=== PATIENT | female | born 1940 | race Caucasian/White ===

== ENCOUNTER → 2022-01-26 | Outpatient (CLI) | payer MEDICARE ==
[2022-01-26 13:47] LABS: BASOPHILS ABSOLUTE AUTO 0.08 K/mm3 (0.00-0.23); BASOPHILS PERCENT AUTO 1 % (0-2); EOSINOPHILS ABSOLUTE AUTO 0.41 K/mm3 (0.00-0.68); EOSINOPHILS PERCENT AUTO 6 % (0-6); Hematocrit 37.6 % (33.0-51.0); Hemoglobin 12.3 g/dL (11.5-16.0); IMMATURE GRAN ABSOLUTE AUTO 0.01 K/mm3 (0.00-0.10); IMMATURE GRAN PERCENT AUTO 0 % (0-1); LYMPHOCYTES ABSOLUTE AUTO 1.38 K/mm3 (0.84-5.20); LYMPHOCYTES PERCENT AUTO 21 % (21-46); MONOCYTES ABSOLUTE AUTO 0.54 K/mm3 (0.16-1.47); MONOCYTES PERCENT AUTO 8 % (4-13); Mean Corpuscular HGB 31.7 pg (26.0-34.0); Mean Corpuscular HGB Conc 32.7 g/dL (31.5-36.5); Mean Corpuscular Volume 97 fL (80-100); Mean Platelet Volume 9.6 fL (9.1-12.4); NEUTROPHILS ABSOLUTE AUTO 4.29 K/mm3 (1.96-9.15); NEUTROPHILS PERCENT AUTO 64 % (41-73); Platelet Count 164 K/mm3 (150-400); RDW Coefficient Variation 12.5 % (11.7-14.2); RDW Standard Deviation 44.1 fL (35.1-46.3); Red Blood Cell Count 3.88 M/mm3 (3.80-5.20); White Blood Cell Count 6.71 K/mm3 (4.00-11.30)
== END ==
LOC: LAB SHORT 12:50 → LAB 12:50
PROVIDERS: Physician Assistant
DX: S91.002A Unspecified open wound, left ankle, initial encounter (principal); L03.116 Cellulitis of left lower limb
CPT/HCPCS: 85025; 85651; 86140

== ENCOUNTER 2022-03-17 11:36 | Emergency (ER) | payer MEDICARE ==
[~2022-03-17] VITALS: Ht 165.1 cm; Wt 61.2 kg
[2022-03-17 13:18] LABS: BASOPHILS ABSOLUTE AUTO 0.08 K/mm3 (0.00-0.23); BASOPHILS PERCENT AUTO 1 % (0-2); EOSINOPHILS ABSOLUTE AUTO 0.33 K/mm3 (0.00-0.68); EOSINOPHILS PERCENT AUTO 4 % (0-6); Hematocrit 34.1 % (33.0-51.0); Hemoglobin 11.2 g/dL (11.5-16.0); IMMATURE GRAN ABSOLUTE AUTO 0.02 K/mm3 (0.00-0.10); IMMATURE GRAN PERCENT AUTO 0 % (0-1); LYMPHOCYTES ABSOLUTE AUTO 1.78 K/mm3 (0.84-5.20); LYMPHOCYTES PERCENT AUTO 22 % (21-46); MONOCYTES ABSOLUTE AUTO 0.72 K/mm3 (0.16-1.47); MONOCYTES PERCENT AUTO 9 % (4-13); Mean Corpuscular HGB 31.7 pg (26.0-34.0); Mean Corpuscular HGB Conc 32.8 g/dL (31.5-36.5); Mean Corpuscular Volume 97 fL (80-100); Mean Platelet Volume 9.7 fL (9.1-12.4); NEUTROPHILS ABSOLUTE AUTO 5.25 K/mm3 (1.96-9.15); NEUTROPHILS PERCENT AUTO 64 % (41-73); Platelet Count 238 K/mm3 (150-400); RDW Coefficient Variation 13.1 % (11.7-14.2); RDW Standard Deviation 46.2 fL (35.1-46.3); Red Blood Cell Count 3.53 M/mm3 (3.80-5.20); White Blood Cell Count 8.18 K/mm3 (4.00-11.30)
[2022-03-17 13:32] LABS: Albumin, Blood 3.5 g/dL (3.4-5.0); Albumin/Globulin Ratio 1.2 (0.8-1.8); Bilirubin, Total 0.6 mg/dL (0.1-1.0); Bun/Creatinine Ratio 23.2 (12.0-20.0); Calcium, Blood 9.1 mg/dL (8.5-10.1); Creatinine, Blood 0.78 mg/dL (0.40-1.00); Globulin, Blood 2.8 g/dL (2.2-4.0); Potassium, Blood 3.9 mmol/L (3.5-5.5); Total Protein, Blood 6.3 g/dL (6.4-8.2)
[2022-03-17] MEDS ORDERED: Calan40 MG (13:54)
[2022-03-17] MEDS ORDERED: LOVASTATIN20 MG PO (13:54)
[2022-03-17] MEDS ORDERED: MERIBIN5 MG PO (13:55)
[2022-03-17] MEDS ORDERED: NAPPHEOPSO BOTHEYES (13:55)
[2022-03-17] MEDS ORDERED: ACETAMINOPHEN500 M2 PO (13:55)
[2022-03-17] MEDS ORDERED: LOW DOSE ASPIRI81 M1 PO (13:55)
[2022-03-17] MEDS ORDERED: Pepcid 20 mg Ta20 MG PO (13:56)
[2022-03-17] MEDS ORDERED: DECARA1250 MC1 PO (13:56)
[2022-03-17] MEDS ORDERED: HYDHCL25 PO (13:57)
[2022-03-17] MEDS ORDERED: Prinivil10 MG PO (13:57)
[2022-03-17] MEDS ORDERED: PARO20 PO (13:59)
[2022-03-17] MEDS ORDERED: METO50 PO (14:00)
[2022-03-17] MEDS ORDERED: CEPH500 PO (16:22)
[2022-03-17] MEDS ORDERED: CLIN150 PO (17:10)
== END 2022-03-17 16:57 | disposition home or self-care (01) ==
LOC: ER 11:36
PROVIDERS: Student in an Organized Health Care Education/Training Program
DX: I87.2 Venous insufficiency (chronic) (peripheral) (principal)
CPT/HCPCS: 36415; 73610; 80053; 85025; 93971; A9270

== ENCOUNTER 2022-03-28 13:48 | Inpatient (IN) | payer OTHER, MEDICARE ==
[~2022-03-28] VITALS: Ht 165.1 cm; Wt 60.8 kg
[~2022-03-28 13:48] MED LIST: ACETAMINOPHEN500 M2 PO; CEPH500 PO; CLIN150 PO; Calan40 MG; DECARA1250 MC1 PO; HYDHCL25 PO; LOVASTATIN20 MG PO; LOW DOSE ASPIRI81 M1 PO; MERIBIN5 MG PO; METO50 PO; NAPPHEOPSO BOTHEYES; PARO20 PO; Pepcid 20 mg Ta20 MG PO; Prinivil10 MG PO
[2022-03-28 14:42] LABS: BASOPHILS ABSOLUTE AUTO 0.05 K/mm3 (0.00-0.23); BASOPHILS PERCENT AUTO 1 % (0-2); EOSINOPHILS PERCENT AUTO 2 % (0-6); Hemoglobin 10.7 g/dL (11.5-16.0); IMMATURE GRAN ABSOLUTE AUTO 0.18 K/mm3 (0.00-0.10); IMMATURE GRAN PERCENT AUTO 2 % (0-1); LYMPHOCYTES ABSOLUTE AUTO 1.07 K/mm3 (0.84-5.20); LYMPHOCYTES PERCENT AUTO 10 % (21-46); MONOCYTES ABSOLUTE AUTO 0.77 K/mm3 (0.16-1.47); MONOCYTES PERCENT AUTO 7 % (4-13); Mean Corpuscular HGB 31.7 pg (26.0-34.0); Mean Corpuscular HGB Conc 32.4 g/dL (31.5-36.5); Mean Corpuscular Volume 98 fL (80-100); Mean Platelet Volume 8.8 fL (9.1-12.4); NEUTROPHILS ABSOLUTE AUTO 8.25 K/mm3 (1.96-9.15); NEUTROPHILS PERCENT AUTO 78 % (41-73); Platelet Count 223 K/mm3 (150-400); RDW Coefficient Variation 13.1 % (11.7-14.2); RDW Standard Deviation 46.3 fL (35.1-46.3); Red Blood Cell Count 3.38 M/mm3 (3.80-5.20); White Blood Cell Count 10.52 K/mm3 (4.00-11.30)
[2022-03-28 15:00] LABS: Albumin, Blood 3.1 g/dL (3.4-5.0); Bilirubin, Total 0.6 mg/dL (0.1-1.0); Bun/Creatinine Ratio 29.2 (12.0-20.0); Calcium, Blood 8.7 mg/dL (8.5-10.1); Creatinine, Blood 0.75 mg/dL (0.40-1.00); Globulin, Blood 3.2 g/dL (2.2-4.0); Potassium, Blood 4.2 mmol/L (3.5-5.5); Total Protein, Blood 6.3 g/dL (6.4-8.2)
[2022-03-28] MEDS ORDERED: Avidoxy100 MG PO (18:01)
[2022-03-28] MEDS ORDERED: CEPH500 PO (18:03)
[2022-03-28] MEDS ORDERED: NAPR220 PO (18:41)
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
[2022-03-28 20:01] LABS: BASOPHILS ABSOLUTE AUTO 0.04 K/mm3 (0.00-0.23); BASOPHILS PERCENT AUTO 0 % (0-2); EOSINOPHILS ABSOLUTE AUTO 0.02 K/mm3 (0.00-0.68); EOSINOPHILS PERCENT AUTO 0 % (0-6); Hematocrit 28.4 % (33.0-51.0); Hemoglobin 9.4 g/dL (11.5-16.0); IMMATURE GRAN ABSOLUTE AUTO 0.08 K/mm3 (0.00-0.10); IMMATURE GRAN PERCENT AUTO 1 % (0-1); LYMPHOCYTES ABSOLUTE AUTO 1.03 K/mm3 (0.84-5.20); LYMPHOCYTES PERCENT AUTO 9 % (21-46); MONOCYTES ABSOLUTE AUTO 0.65 K/mm3 (0.16-1.47); MONOCYTES PERCENT AUTO 5 % (4-13); Mean Corpuscular HGB 31.5 pg (26.0-34.0); Mean Corpuscular HGB Conc 33.1 g/dL (31.5-36.5); Mean Corpuscular Volume 95 fL (80-100); Mean Platelet Volume 8.8 fL (9.1-12.4); NEUTROPHILS ABSOLUTE AUTO 10.23 K/mm3 (1.96-9.15); NEUTROPHILS PERCENT AUTO 85 % (41-73); Platelet Count 176 K/mm3 (150-400); RDW Coefficient Variation 13.3 % (11.7-14.2); RDW Standard Deviation 46.5 fL (35.1-46.3); Red Blood Cell Count 2.98 M/mm3 (3.80-5.20); White Blood Cell Count 12.05 K/mm3 (4.00-11.30)
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
[2022-03-29 04:45] LABS: BASOPHILS ABSOLUTE AUTO 0.03 K/mm3 (0.00-0.23); BASOPHILS PERCENT AUTO 0 % (0-2); EOSINOPHILS ABSOLUTE AUTO 0.02 K/mm3 (0.00-0.68); EOSINOPHILS PERCENT AUTO 0 % (0-6); Hematocrit 26.3 % (33.0-51.0); Hemoglobin 8.8 g/dL (11.5-16.0); IMMATURE GRAN ABSOLUTE AUTO 0.04 K/mm3 (0.00-0.10); IMMATURE GRAN PERCENT AUTO 0 % (0-1); LYMPHOCYTES ABSOLUTE AUTO 1.04 K/mm3 (0.84-5.20); LYMPHOCYTES PERCENT AUTO 12 % (21-46); MONOCYTES ABSOLUTE AUTO 0.65 K/mm3 (0.16-1.47); MONOCYTES PERCENT AUTO 7 % (4-13); Mean Corpuscular HGB 31.8 pg (26.0-34.0); Mean Corpuscular HGB Conc 33.5 g/dL (31.5-36.5); Mean Corpuscular Volume 95 fL (80-100); NEUTROPHILS ABSOLUTE AUTO 7.26 K/mm3 (1.96-9.15); NEUTROPHILS PERCENT AUTO 80 % (41-73); Platelet Count 167 K/mm3 (150-400); RDW Coefficient Variation 13.2 % (11.7-14.2); RDW Standard Deviation 45.9 fL (35.1-46.3); Red Blood Cell Count 2.77 M/mm3 (3.80-5.20); White Blood Cell Count 9.04 K/mm3 (4.00-11.30)
[2022-03-29 05:22] LABS: Albumin, Blood 2.7 g/dL (3.4-5.0); Anion Gap 6 mmol/L (6-16); Blood Urea Nitrogen 15 mg/dL (8-24); Bun/Creatinine Ratio 23.7 (12.0-20.0); CO2, Blood 26 mmol/L (21-32); Calcium, Blood 8.1 mg/dL (8.5-10.1); Chloride, Blood 107 mmol/L (98-108); Creatinine, Blood 0.63 mg/dL (0.40-1.00); Glomerular Filtration Rate 90 (60-); Glucose, Blood 121 mg/dL (70-99); Phosphorus, Blood 2.8 mg/dL (2.5-4.9); Potassium, Blood 4.2 mmol/L (3.5-5.5); Sodium, Blood 139 mmol/L (136-145)
[2022-03-29] MEDS ORDERED: CLIN150 PO (10:07)
[2022-03-29] MEDS ORDERED: HYDCHL25 PO (10:09)
[2022-03-29 13:49] LABS: Hematocrit 24.6 % (33.0-51.0)
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
--- NOTE | 2022-03-29 16:40 | NUR ---
ASSUMED CARE RECEIVED REPORT ON THE PT FROM PREVIOUS RN. LAID EYES ON THE PT WHO IS RESTING COMFORTABLY IN BED AT TIME OF CHANGE OF CARE. NO NEEDS AT THIS TIME. WILL CTM
[2022-03-30 04:39] LABS: Hematocrit 20.7 % (33.0-51.0); Hemoglobin 6.8 g/dL (11.5-16.0); Mean Corpuscular HGB 31.8 pg (26.0-34.0); Mean Corpuscular HGB Conc 32.9 g/dL (31.5-36.5); Mean Corpuscular Volume 97 fL (80-100); Platelet Count 173 K/mm3 (150-400); RDW Coefficient Variation 13.6 % (11.7-14.2); RDW Standard Deviation 47.8 fL (35.1-46.3); Red Blood Cell Count 2.14 M/mm3 (3.80-5.20); White Blood Cell Count 13.53 K/mm3 (4.00-11.30)
[2022-03-30 04:55] LABS: Albumin, Blood 2.6 g/dL (3.4-5.0); Anion Gap 5 mmol/L (6-16); Blood Urea Nitrogen 24 mg/dL (8-24); Bun/Creatinine Ratio 30.1 (12.0-20.0); CO2, Blood 29 mmol/L (21-32); Calcium, Blood 7.9 mg/dL (8.5-10.1); Chloride, Blood 102 mmol/L (98-108); Glomerular Filtration Rate 75 (60-); Glucose, Blood 141 mg/dL (70-99); Phosphorus, Blood 2.7 mg/dL (2.5-4.9); Potassium, Blood 4.5 mmol/L (3.5-5.5); Sodium, Blood 136 mmol/L (136-145)
--- NOTE | 2022-03-30 05:26 | NUR ---
SHIFT SUMMARY NO ACUTE EVENTS THIS SHIFT, PATIENT VOIDING USING BEDPAN, TAKING IN CLEAR LIQUIDS EASILY. DENIES N/V. REPOSITIONS T/O SHIFT. DRESSING ON LLE CHANGED BY THIS RN. MEDICATED FOR PAIN WITH GOOD RESULTS. RESTS COMFORTABLY T/O SHIFT. PLAN FOR DISCHARGE HOME WHEN MEDICALLY STABLE. VSS, CALL LIGHT IN REACH.
--- NOTE | 2022-03-30 15:13 | NUR ---
tele SINUS TACH @ 108 PER DENISE.
--- NOTE | 2022-03-30 15:22 | NUR ---
RYLEY Gay RN IN TO PLACE POWERGLIDE.
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
[2022-03-30 21:24] LABS: Hematocrit 25.2 % (33.0-51.0); Hemoglobin 8.7 g/dL (11.5-16.0)
--- NOTE | 2022-03-31 04:14 | NUR ---
SHIFT SUMMARY NO ACUTE CHANGES THIS SHIFT. ULTRAM PRN FOR PAIN MANAGEMENT. ORAL ABX PER ORDERS. REMAINS ON 3L O2 VIA NC. GETS SHORT OF BREATH WITH EXERTION + WITH PAIN. CHANGING ATTENDS PRN. DRESSING CHANGED TO LEFT ANKLE WOUND. NPO SINCE MIDNIGHT FOR CHEST TUBE PLACEMENT TODAY. USES CALL LIGHT APPROPRIATELY.
[2022-03-31 06:11] LABS: Hematocrit 26.4 % (33.0-51.0); Hemoglobin 8.9 g/dL (11.5-16.0); Mean Corpuscular HGB 30.9 pg (26.0-34.0); Mean Corpuscular HGB Conc 33.7 g/dL (31.5-36.5); Mean Platelet Volume 9.1 fL (9.1-12.4); NRBC ABSOLUTE 0.06 K/mm3 (0.00-0.02); NRBC Auto 0.4 /100 WBC (0.0-0.2); Platelet Count 149 K/mm3 (150-400); RDW Coefficient Variation 15.2 % (11.7-14.2); RDW Standard Deviation 49.9 fL (35.1-46.3); Red Blood Cell Count 2.88 M/mm3 (3.80-5.20); White Blood Cell Count 14.33 K/mm3 (4.00-11.30)
[2022-03-31 06:14] LABS: Mean Corpuscular Volume 92 fL (80-100)
[2022-03-31 07:24] LABS: Albumin, Blood 2.8 g/dL (3.4-5.0); Anion Gap 4 mmol/L (6-16); Blood Urea Nitrogen 20 mg/dL (8-24); CO2, Blood 30 mmol/L (21-32); Calcium, Blood 8.5 mg/dL (8.5-10.1); Chloride, Blood 98 mmol/L (98-108); Creatinine, Blood 0.69 mg/dL (0.40-1.00); Glomerular Filtration Rate 88 (60-); Glucose, Blood 107 mg/dL (70-99); Phosphorus, Blood 2.7 mg/dL (2.5-4.9); Sodium, Blood 132 mmol/L (136-145)
--- NOTE | 2022-03-31 10:53 | NUR ---
PT TO PREOP AT 1015.
--- NOTE | 2022-03-31 11:06 | NUR ---
DISCUSSED TELE AND HR W/DR JULIEN NO NEW ORDERS AT THIS TIME.
--- NOTE | 2022-03-31 11:38 | NUR ---
03/31/22 1138 Britni Newby NO PREOP ANTIBIOTICS ORDERED PER PATIENT IS ON SCHEDULED ANTIBIOTICS.
--- NOTE | 2022-03-31 13:10 | NUR ---
PT BACK TO ROOM FROM PACU ALERT AND ORIENTED. FAMILY BEDSIDE. CHEST TUBE PLACED TO SUCTION PER ORDERS. DRAINING DARK RED FLUID. OUTPUT MARKED ON ARRIVAL TO MONITOR. PT REPORTS PAIN TOLERABLE. TELE REPORTED WAP @ 110 PER NATE. 02 SATS 92-94% ON 3L NC. WOUND CARE NURSE IN ROOM TO ASSESS AND TREAT LLE WOUND. CALL LIGHT IN REACH. ADMINISTERED SCHEDULED ABX PER ORDERS. PT SWALLOWED WITHOUT DIFFICULTY.
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
--- NOTE | 2022-03-31 17:38 | NUR ---
SUMMARY PT POD 0 FOR CHEST TUBE PLACED TO R LATERAL CHEST WALL. PLACED TO SUCTION PER ORDERS. DRAINING THIN RED FLUID. DRESSING INTACT. PT 02 SATS LOW 90S ON 3L 02. TELE SHOWING WAP IN 110S TO 120S, DR JULIEN NOTIFIED. MEDICATED PT PER ORDERS FOR PAIN. PT TOLERATING SMALL AMOUNTS OF PO. MANAGER CLINICAL INFORMATICS IN TO SEE PT AND CHANGED DRESSING THIS SHIFT. WOUND CARE ORDERS IN CHART. CALL LIGHT IN REACH.
--- NOTE | 2022-04-01 04:33 | NUR ---
SHIFT SUMMARY PT RESTED WELL THIS SHIFT. FORGETFUL AT TIMES, BUT REORIENTS EASILY. BED ALARM IN PLACE FOR SAFETY. CHEST TUBE REMAINS INTACT AND TO WALL SUCTION. SEROSANGUINOUS DRAINAGE NOTED IN CHEST TUBE. REMAINS ON 3L O2 VIA NC. SOB WITH EXERTION, ENCOURAGING DEEP BREATHING. CHANGING ATTENDS PRN. ULTRAM PRN FOR PAIN. CALL LIGHT WITHIN REACH.
[2022-04-01 06:21] LABS: Hematocrit 25.7 % (33.0-51.0); Hemoglobin 8.7 g/dL (11.5-16.0); Mean Corpuscular HGB 31.6 pg (26.0-34.0); Mean Corpuscular HGB Conc 33.9 g/dL (31.5-36.5); Mean Corpuscular Volume 94 fL (80-100); Mean Platelet Volume 9.2 fL (9.1-12.4); NRBC ABSOLUTE 0.05 K/mm3 (0.00-0.02); NRBC Auto 0.4 /100 WBC (0.0-0.2); Platelet Count 160 K/mm3 (150-400); RDW Coefficient Variation 14.9 % (11.7-14.2); RDW Standard Deviation 49.5 fL (35.1-46.3); Red Blood Cell Count 2.75 M/mm3 (3.80-5.20); White Blood Cell Count 13.43 K/mm3 (4.00-11.30)
[2022-04-01 06:23] LABS: Albumin, Blood 2.5 g/dL (3.4-5.0); Anion Gap 4 mmol/L (6-16); Blood Urea Nitrogen 16 mg/dL (8-24); Bun/Creatinine Ratio 28.1 (12.0-20.0); CO2, Blood 30 mmol/L (21-32); Calcium, Blood 8.3 mg/dL (8.5-10.1); Chloride, Blood 99 mmol/L (98-108); Creatinine, Blood 0.57 mg/dL (0.40-1.00); Glomerular Filtration Rate 92 (60-); Glucose, Blood 121 mg/dL (70-99); Phosphorus, Blood 2.7 mg/dL (2.5-4.9); Potassium, Blood 4.2 mmol/L (3.5-5.5); Sodium, Blood 133 mmol/L (136-145)
--- NOTE | 2022-04-01 17:36 | NUR ---
SUMMARY: NO ACUTE CHANGE TODAY. VSS, A/O-FORGETFUL AT TIMES. BED ALARM ON. CHEST TUBE TO SUCTION, 100 ML OF SS TOTAL DRAINAGE OUT OF CT TODAY. INSERTION SITE IS WNL WITH DRY SS DRAINAGE AT DRESSING. PT HAS NO COMPLAINT OF SOB, CHEST PAIN. PAIN APPEARS WELL MANAGED WITH PO TRAMADOL. PT ABLE TO AMBULATE IN ROOM WITH THERAPY, SBA, FWW. CHRONIC WOUND AT DRESSING CHANGED TODAY BY WOUND RN. TELE STABLE. NO ACUTE CONCERNS AT THIS TIME.
--- NOTE | 2022-04-02 04:51 | NUR ---
SUMMARY PT HAD INCREASED CONFUSION WITH HALLUCINATIONS THIS SHIFT. PT CX TUBE REMAINS PATENT AND TO WALL SUCTION. CX TUBE DRAINING SS FLUID. PT HAS DENIED SOB THIS SHIFT. PT HAS HAD SOME DISCOMFORT AND TX W/ TRAMADOL WITH RELIEF. PT CURRENTLY SLEEPING IN NO DISTRESS. BED ALARM ON.
[2022-04-02 04:53] LABS: Hematocrit 25.2 % (33.0-51.0); Hemoglobin 8.4 g/dL (11.5-16.0); Mean Corpuscular HGB Conc 33.3 g/dL (31.5-36.5); Mean Corpuscular Volume 93 fL (80-100); Mean Platelet Volume 9.1 fL (9.1-12.4); NRBC ABSOLUTE 0.03 K/mm3 (0.00-0.02); NRBC Auto 0.2 /100 WBC (0.0-0.2); Platelet Count 189 K/mm3 (150-400); RDW Coefficient Variation 14.9 % (11.7-14.2); RDW Standard Deviation 48.5 fL (35.1-46.3); Red Blood Cell Count 2.71 M/mm3 (3.80-5.20); White Blood Cell Count 13.12 K/mm3 (4.00-11.30)
[2022-04-02 05:05] LABS: Albumin, Blood 2.5 g/dL (3.4-5.0); Anion Gap 7 mmol/L (6-16); Blood Urea Nitrogen 19 mg/dL (8-24); CO2, Blood 28 mmol/L (21-32); Calcium, Blood 8.3 mg/dL (8.5-10.1); Chloride, Blood 98 mmol/L (98-108); Creatinine, Blood 0.66 mg/dL (0.40-1.00); Glomerular Filtration Rate 89 (60-); Glucose, Blood 114 mg/dL (70-99); Phosphorus, Blood 3.2 mg/dL (2.5-4.9); Potassium, Blood 3.8 mmol/L (3.5-5.5); Sodium, Blood 133 mmol/L (136-145)
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
--- NOTE | 2022-04-03 04:30 | NUR ---
SUMMARY PT CONFUSION AND HALLUCINATIONS INCREASED THROUGHOUT SHIFT. PT ATTEMPTED TO REMOVE CX TUBE DRESSING. A ABD BINDER WAS LOOSELY APPLIED TO COVER CX TUBE SITE. CX TUBE IS PATENT AND FUNCTIONING WELL. THIS AM PT BECAME MORE IMPULSIVE AND HAS BEEN TRING TO GET OUT OF BED NUMEROUS TIMES. DR LAINEZ WAS CALLED AND A RESTRAINT ORDER WAS OBTAINED. PT WAS PLACED IN A ASHLEY VEST FOR HER SAFETY. PT IS BREATHING EASY AND IN NO DISTRESS. CALL LIGHT IN REACH AND BED ALARM ON.
--- NOTE | 2022-04-03 12:23 | NUR ---
PATIENT VERY LETHARGIC TODAY. WILL WAKE UP APPROPRIATELY TO HER NAME AND VOICE, CANNOT HAVE CONVERSATION WITH HER THOUGH D/T RESPONSES MAKING NO SENSE. FAMILY FEELS THAT THIS CONFUSION OS D/T THE TRAMADOL. PATIENT UNABLE TO TAKE MEDICATIONS THIS MORNING D/T BEING "SO SLEEPY" AND NOT STAYING AWAKE/KEEPING EYES OPEN.
--- NOTE | 2022-04-03 17:35 | NUR ---
SHIFT SUMMARY DR AZMORANO REMOVED CHEST TUBE THIS SHIFT, PLAN FOR XRAY IN AM. PATIENT VERY SLEEPY/LETHARGIC T/O SHIFT. NOC RN FROM LAST NIGHT REPORTED PATIENT TO BE VERY RESTLESS AND DID NOT SLEEP MUCH, THIS RN SUSPECTS PATIENT IS "CATHCING UP" ON REST. TRMADOL DC'D D/T FAMILY FEELING THAT IT CAUSED THE "ACUTE CONFUSION & HALLUCINATIONS". PATIENT HAS NOT C/O PAIN. POOR PO INTAKE THIS SHIFT D/T PATIENT SLEEPING. CALL LIGHT IN REACH.
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
[2022-04-04] MEDS ORDERED: PROBIOTIC1 EA13 PO (13:21)
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
== END 2022-04-04 14:15 | disposition home or self-care (01) | DRG 199 ==
LOC: ER 13:48 → SURS 16:10
PROVIDERS: Family Medicine; Internal Medicine; Student in an Organized Health Care Education/Training Program; ADMIT Surgery
PROC: 30233N1 Transfusion of Nonautologous Red Blood Cells into Peripheral Vein, Percutaneous Approach (ICD-10-PCS; principal; 2022-03-28)
PROC: 30233N1 Transfusion of Nonautologous Red Blood Cells into Peripheral Vein, Percutaneous Approach (ICD-10-PCS; 2022-03-30)
PROC: 0W9900Z Drainage of Right Pleural Cavity with Drainage Device, Open Approach (ICD-10-PCS; 2022-03-31)
DX: S27.2XXA Traumatic hemopneumothorax, initial encounter (principal); J96.01 Acute respiratory failure with hypoxia; S22.41XA Multiple fractures of ribs, right side, initial encounter for closed fracture; S27.321A Contusion of lung, unilateral, initial encounter; D62 Acute posthemorrhagic anemia; L97.329 Non-pressure chronic ulcer of left ankle with unspecified severity; I95.9 Hypotension, unspecified; I10 Essential (primary) hypertension; E78.5 Hyperlipidemia, unspecified; K21.9 Gastro-esophageal reflux disease without esophagitis; F32.A Depression, unspecified; Z88.0 Allergy status to penicillin; Z88.2 Allergy status to sulfonamides; Z79.82 Long term (current) use of aspirin; Z79.899 Other long term (current) drug therapy; V89.2XXA Person injured in unspecified motor-vehicle accident, traffic, initial encounter; Y92.410 Unspecified street and highway as the place of occurrence of the external cause
CPT/HCPCS: 36415; 36430; 70450; 71045; 71046; 71260; 72125; 73130; 73590; 74177; 80053; 80069; 85014; 85018; 85025; 85027; 86850; 86900; 86901; 86923; 93005; 93010; 94761; 96374-59; 97110; 97116; 97162; 97166; 97530; 97535; 99291-25; A9270; C1751; J1940; J2250; J2795; J3010; J7030; J7050; J7120; P9016; Q9967

== ENCOUNTER 2022-07-09 11:19 | Day surgery (SDC) | payer MEDICARE ==
[~2022-07-09] VITALS: Ht 162.6 cm; Wt 54.6 kg
[~2022-07-09 11:19] MED LIST changes: +Avidoxy100 MG PO; +HYDCHL25 PO; +NAPR220 PO; +PROBIOTIC1 EA13 PO
[2022-07-09] MEDS ORDERED: Prinivil10 MG PO (11:40)
[2022-07-09] MEDS ORDERED: VERA240ER PO (11:40)
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
== END 2022-07-09 13:07 | disposition home or self-care (01) ==
LOC: ORSCSDS 11:19
PROVIDERS: Ophthalmology
PROC: 08RK3JZ Replacement of Left Lens with Synthetic Substitute, Percutaneous Approach (ICD-10-PCS; principal; 2022-07-09 12:30)
DX: H25.13 Age-related nuclear cataract, bilateral (principal); I10 Essential (primary) hypertension; I48.91 Unspecified atrial fibrillation; Z87.891 Personal history of nicotine dependence; K21.9 Gastro-esophageal reflux disease without esophagitis; Z79.82 Long term (current) use of aspirin; Z79.899 Other long term (current) drug therapy; F41.8 Other specified anxiety disorders
CPT/HCPCS: A9270; J2001; J2250; J3010; J3301; J7040; V2632

== ENCOUNTER 2022-07-21 12:46 | Day surgery (SDC) | payer MEDICARE ==
[~2022-07-21] VITALS: Ht 162.6 cm; Wt 55.8 kg
[~2022-07-21 12:46] MED LIST changes: +VERA240ER PO
--- NOTE | 2022-07-21 13:15 | NUR ---
07/21/22 1315 Kristina Gutierres CALL LIGHT WITHIN REACH. TETRACAINE IN AT 1315 IN THE RIGHT EYE AND PLEDGETT IN AT 1316
--- NOTE | 2022-07-21 15:11 | NUR ---
[facility]22 [facility] DR DIAZ CONSULTED REGARDING ELEVATED BLOOD PRESSURES SYSTOLIC IN THE 190'S. PT DID NOT TAKE MORNING DOSE OF VERAPAMIL TODAY. PER DR DIAZ ENCOURAGE PT TO TAKE BLOOD PRESSURE MEDICATIONS WHEN SHE GETS HOME AND DISCHARGE HOME. PATIENT EXPRESSES READINESS TO GO HOME.
== END 2022-07-21 15:02 | disposition home or self-care (01) ==
LOC: ORSCSDS 12:46
PROVIDERS: Ophthalmology
PROC: 08RJ3JZ Replacement of Right Lens with Synthetic Substitute, Percutaneous Approach (ICD-10-PCS; principal; 2022-07-21 14:00)
DX: H25.11 Age-related nuclear cataract, right eye (principal); I10 Essential (primary) hypertension; I48.91 Unspecified atrial fibrillation; Z87.891 Personal history of nicotine dependence; Z79.899 Other long term (current) drug therapy
CPT/HCPCS: J2001; J2250; J3010; J3300; J7040; V2632

== ENCOUNTER → 2024-10-16 | Outpatient (CLI) | payer MEDICARE ==
[~2024-10-16] MED LIST changes: +ACET500 PO; +AMLO5 PO; +Aspir 8181 MG PO; +FURO20 PO; +LOSA50 PO; +MELO7.5 PO; +METO50ER PO; +TRIA15CR3 TOP; +VISBIOME 112.51 EACH PO
== END | disposition home or self-care (01) ==
LOC: LAB 15:02 → LAB SHORT 15:02
DX: L03.115 Cellulitis of right lower limb (principal)
CPT/HCPCS: 87070; 87205

== ENCOUNTER 2024-12-07 03:25 | Day surgery (SDC) | payer MEDICARE ==
[2024-12-07] MEDS ORDERED: Lidocaine HCl 4% Cream 5 GM ONE (12:13)
== END 2024-12-07 23:16 | disposition home or self-care (01) ==
LOC: WOUND 03:25
DX: I83.018 Varicose veins of right lower extremity with ulcer other part of lower leg (principal); L97.812 Non-pressure chronic ulcer of other part of right lower leg with fat layer exposed; I87.2 Venous insufficiency (chronic) (peripheral); I73.9 Peripheral vascular disease, unspecified; N28.9 Disorder of kidney and ureter, unspecified; Z88.0 Allergy status to penicillin; Z88.5 Allergy status to narcotic agent; Z88.2 Allergy status to sulfonamides
CPT/HCPCS: A6213; A9270; G0463

== ENCOUNTER 2024-12-14 00:47 | Day surgery (SDC) | payer MEDICARE ==
[2024-12-14] MEDS ORDERED: Lidocaine HCl 4% Cream 5 GM ONE (13:29)
== END 2024-12-14 23:00 | disposition home or self-care (01) ==
LOC: WOUND 00:47
DX: L97.812 Non-pressure chronic ulcer of other part of right lower leg with fat layer exposed (principal); S81.801D Unspecified open wound, right lower leg, subsequent encounter; X58.XXXD Exposure to other specified factors, subsequent encounter; I87.2 Venous insufficiency (chronic) (peripheral); I73.9 Peripheral vascular disease, unspecified; N28.9 Disorder of kidney and ureter, unspecified
CPT/HCPCS: A6213; A9270

== ENCOUNTER 2024-12-27 02:32 | Day surgery (SDC) | payer MEDICARE ==
[2024-12-27] MEDS ORDERED: Lidocaine HCl 4% Cream 5 GM ONE (13:31)
== END 2024-12-27 23:00 | disposition home or self-care (01) ==
LOC: WOUND 02:32
DX: I83.018 Varicose veins of right lower extremity with ulcer other part of lower leg (principal); L97.812 Non-pressure chronic ulcer of other part of right lower leg with fat layer exposed; S81.801A Unspecified open wound, right lower leg, initial encounter; I87.2 Venous insufficiency (chronic) (peripheral); I73.9 Peripheral vascular disease, unspecified; N18.9 Chronic kidney disease, unspecified
CPT/HCPCS: A6213; A9270

== ENCOUNTER 2025-01-05 00:02 | Day surgery (SDC) | payer MEDICARE | END 2025-01-05 23:00 | disposition home or self-care (01) | LOC: WOUND 00:02 | DX: L97.812 Non-pressure chronic ulcer of other part of right lower leg with fat layer exposed (principal); I87.2 Venous insufficiency (chronic) (peripheral); I73.9 Peripheral vascular disease, unspecified; N28.9 Disorder of kidney and ureter, unspecified | CPT/HCPCS: A6196; A6213; G0463 ==